=== PATIENT | male | born 1990 | race Hispanic/Latino ===

== ENCOUNTER 2018-08-16 13:06 | Emergency (ER) | payer OTHER ==
[2018-08-16 13:13] VITALS: TEMP 97.6; O2SAT 98
[2018-08-16] MEDS ORDERED: DiphenhydrAMINE 50 mg/ml Inj ONE (13:15)
[2018-08-16] MEDS ORDERED: EPINEPHrine 1 mg/ml (1:1000) Inj ONE (13:16)
[2018-08-16] MEDS ORDERED: Sodium Chloride 0.9% 1,000 ML IV STA (13:18)
[2018-08-16 13:46] LABS: BASO % 0.3 % (0.0-2.0); EOS # 0.2 K/uL (0.0-0.7); EOS % 1.4 % (0.0-4.0); HEMOGLOBIN 17.9 g/dL (12.0-18.0); LYMPH # 3.1 K/uL (1.0-4.3); LYMPH % 28.1 % (20.0-40.0); MEAN CELL VOLUME 92.6 fl (80.0-94.0); MEAN CORPUSCULAR HEMOGLOBIN 30.9 pg (27.0-31.0); MEAN CORPUSCULAR HGB CONC 33.4 g/dL (33.0-37.0); MEAN PLATELET VOLUME 7.5 fl (7.2-11.7); MONO # 0.7 K/uL (0.0-0.8); MONO % 6.4 % (0.0-10.0); NEUT # 7.1 K/uL (1.8-7.0); NEUT % 63.8 % (50.0-75.0); NRBC % 1.4 % (0.0-0.0); RBC 5.79 Mil/uL (4.40-5.90); RED CELL DISTRIBUTION WIDTH 12.7 % (11.5-14.5); WHITE BLOOD COUNT 11.2 K/uL (4.8-10.8)
--- NOTE | 2018-08-16 13:58 | ED PDOC ---
HPI: Skin/Bite Injury Time Seen by Provider: 08/16/18 13:16 Chief Complaint (Nursing): Allergic Reaction Chief Complaint (Provider): Allergic Reaction History Per: Patient History/Exam Limitations: no limitations Onset/Duration Of Symptoms: Days (x1) Current Symptoms Are (Timing): Still Present Additional Complaint(s): 27 year old male arrives to ED for an evaluation of an allergic reaction. Patient reports he ate leftover chocolate truffles from [employer] this morning around 1100 then developed rash with itching diffusely to body. He denies any shortness of breath, chest pain, abdominal pain, throat pain, throat swelling, or known new exposures to food, medication, or environment. Patient reports taking 3 tablets of Benadryl at home at 1230 prior to arrival. Of note, he states he has a new dog at home from 1.5 year ago. PCP: none provided Past Medical History Reviewed: Historical Data, Nursing Documentation, Vital Signs Vital Signs: Last Vital Signs Temp 97.6 F 08/16/18 13:10 Pulse 106 H 08/16/18 13:10 Resp 24 08/16/18 13:10 BP 150/92 H 08/16/18 13:10 Pulse Ox 98 08/16/18 13:10 - Medical History PMH: No Chronic Diseases - Surgical History Surgical History: No Surg Hx - Family History Family History: States: Unknown Family Hx - Allergies Allergies/Adverse Reactions: Allergies Allergy/AdvReac Type Severity Reaction Status Date / Time No Known Allergies Allergy Verified 08/16/18 13:10 Review of Systems ROS Statement: Except As Marked, All Systems Reviewed And Found Negative ENT: Negative for: Throat Pain, Throat Swelling Cardiovascular: Negative for: Chest Pain Respiratory: Negative for: Shortness of Breath Gastrointestinal: Negative for: Abdominal Pain Skin: Positive for: Rash (diffuse with itching) Physical Exam - Reviewed Nursing Documentation Reviewed: Yes Vital Signs Reviewed: Yes - Physical Exam Appears: Positive for: No Acute Distress Head Exam: Positive for: ATRAUMATIC, NORMAL INSPECTION, NORMOCEPHALIC Skin: Positive for: Rash (diffuse) ENT: Positive for: Normal ENT Inspection. Negative for: Pharyngeal Erythema, Tonsillar Swelling Neck: Positive for: Normal, Painless ROM, Supple Cardiovascular/Chest: Positive for: Regular Rate, Rhythm Respiratory: Positive for: Normal Breath Sounds (clear to auscultation). Negative for: Wheezing, Respiratory Distress Gastrointestinal/Abdominal: Positive for: Normal Exam, Soft. Negative for: Tenderness Back: Positive for: Normal Inspection Extremity: Positive for: Normal ROM (upper/lower) Neurologic/Psych: Positive for: Alert, Oriented. Negative for: Motor/Sensory Deficits - Laboratory Results Result Diagrams: 08/16/18 13:40 08/16/18 13:40 - ECG O2 Sat by Pulse Oximetry: 98 (RA) Pulse Ox Interpretation: Normal - Progress Re-evaluation Time: 15: Condition: Improved Medical Decision Making Medical Decision Making: Time: 1315 Initial Plan: * EKG * Labs * Epinephrine 1mg SC * IV fluids * Pepcid 20mg IVP * Solu-medrol 125mg IVP Scribe Attestation: Documented by Janine Garcia, acting as a scribe for Aileen Hammond MD. Provider Scribe Attestation: All medical record entries made by the Scribe were at my direction and personally dictated by me. I have reviewed the chart and agree that the record accurately reflects my personal performance of the history, physical exam, medical decision making, and the department course for this patient. I have also personally directed, reviewed, and agree with the discharge instructions and disposition. Disposition - Clinical Impression Clinical Impression: Allergic reaction - Patient ED Disposition Is Patient to be Admitted: No Doctor Will See Patient In The: Office Counseled Patient/Family Regarding: Diagnosis - Disposition Disposition: Routine/Home Disposition Time: 15:01 Condition: IMPROVED Additional Instructions: take Benadryl 2 tabs every 6 hours as needed. Return to the ER if symptoms become severe. Instructions: Dermatitis Forms: [employer] (Maltese) - POA Present On Arrival: None, Deep Vein Thrombosis / PE
[2018-08-16 14:00] LABS: ALB/GLOB RATIO 1.5 (1.0-2.1); ALBUMIN 4.4 g/dL (3.5-5.0); ALT/SGPT 67 U/L (21-72); AST/SGOT 41 U/L (17-59); BLOOD UREA NITROGEN 19 mg/dl (9-20); CALCIUM 9.2 mg/dL (8.4-10.2); GFR NON-AFRICAN AMERICAN > 60
[2018-08-16 15:23] VITALS: BP 134/74; PULSE 102; RESP 21
--- NOTE | 2018-08-17 00:18 | CARD ---
APPROVED REPORT Date of service: 08/16/2018 EKG Measurement Heart [id number] ID [id number] <Conclusion> Normal sinus rhythm Normal ECG
== END 2018-08-16 14:44 | disposition home or self-care (01) ==
LOC: H.ER 13:06
DX: T78.40XA Allergy, unspecified, initial encounter (principal); R06.2 Wheezing
CPT/HCPCS: 80053; 85025; 93005; 96372; 96374; 96375; 99283; J0171; J2930; J7030

== ENCOUNTER 2018-08-17 18:50 | Emergency (ER) | payer OTHER ==
[2018-08-17] MEDS ORDERED: DiphenhydrAMINE 50 mg/ml Inj ONE (18:56)
[2018-08-17 18:58] VITALS: BMI 68.8
[2018-08-17] MEDS ORDERED: DiphenhydrAMINE 50 mg/ml Inj IV STA (18:58)
[2018-08-17] MEDS ORDERED: Sodium Chloride 0.9% 1,000 ML IV STA (19:23)
[2018-08-17] MEDS ORDERED: EPINEPHrine 1 mg/ml (1:1000) Inj SC STA (19:23)
[2018-08-17] MEDS ORDERED: Magnesium Sulfate 2 gm/50 ml 2 GM/50 ML BAG IV STA (19:34)
[2018-08-17] MEDS ORDERED: EPINEPHrine 1 mg/ml (1:1000) Inj ONE (19:49)
[2018-08-17 20:03] VITALS: RESP 18
[2018-08-17] MEDS ORDERED: Magnesium Sulfate 2 gm/50 ml 2 GM/50 ML BAG ONE (20:06)
--- NOTE | 2018-08-17 20:42 | ED PDOC ---
HPI: Allergic Reaction Time Seen by Provider: 08/17/18 19:22 Chief Complaint (Nursing): Allergic Reaction Chief Complaint (Provider): Allergic Reaction History Per: Patient History/Exam Limitations: no limitations Onset/Duration Of Symptoms: Hrs Current Symptoms Are (Timing): Still Present Possible Cause: Unknown Additional Complaint(s): Chris Hodgson is a 27 year old male with no past medical history who is presenting to the ED for evaluation of allergic reaction. Patient was seen in the ED yesterday for an allergic reaction for which he was given Benadryl, Epi, Pepcid and discharged home without any medication and a recommendation to follow up with an gluer and wedger. He reports that at the time of discharge he was feeling better but today at 5 pm he states that he had throat tightness, trouble breathing/swallowing, and generalized rash. Patient states that he cant recall any new allergen he might have been exposed to but states that yesterday the reaction might have been due to eating a chocolate truffle at [facility]. Of note, patient states that when he was younger he had allergic asthma but he out broke that at a young age. PMD: none provided Past Medical History Reviewed: Historical Data, Nursing Documentation, Vital Signs Vital Signs: Last Vital Signs Temp 97.2 F L 08/17/18 19:01 Pulse 83 08/17/18 19:59 Resp 18 08/17/18 19:59 BP 135/67 08/17/18 19:59 Pulse Ox 98 08/17/18 19:59 - Medical History PMH: No Chronic Diseases - Surgical History Surgical History: No Surg Hx - Family History Family History: States: Unknown Family Hx - Social History Current smoker - smoking cessation education provided: No Alcohol: Social Drugs: Cannabis (medical ) - Home Medications Home Medications: Ambulatory Orders Medication Instructions Recorded Cetirizine HCl [Zyrtec] 10 mg PO QAM #10 capsule 08/17/18 Epinephrine HCl [Epipen 0.3 mg MR PRN PRN #1 ml 08/17/18 Auto-Injector] Famotidine [Pepcid] 20 mg PO Q12 #14 tab 08/17/18 Methylprednisolone [Medrol Dosepak] 4 mg PO ASDIR #1 pkg 08/17/18 - Allergies Allergies/Adverse Reactions: Allergies Allergy/AdvReac Type Severity Reaction Status Date / Time No Known Allergies Allergy Verified 08/16/18 13:10 Review of Systems ROS Statement: Except As Marked, All Systems Reviewed And Found Negative ENT: Positive for: Throat Swelling Respiratory: Positive for: Other (difficulty breathing ) Skin: Positive for: Rash Physical Exam - Reviewed Nursing Documentation Reviewed: Yes Vital Signs Reviewed: Yes - Physical Exam Appears: Positive for: Non-toxic, No Acute Distress Head Exam: Positive for: ATRAUMATIC, NORMAL INSPECTION, NORMOCEPHALIC Skin: Positive for: Warm, Rash (generalized diffuse urticarial rash) Eye Exam: Positive for: EOMI, Normal appearance, PERRL ENT: Positive for: Normal ENT Inspection Neck: Positive for: Normal, Painless ROM Cardiovascular/Chest: Positive for: Regular Rate, Rhythm. Negative for: Murmur Respiratory: Positive for: Other (decreased air entry in lungs). Negative for: Respiratory Distress Gastrointestinal/Abdominal: Positive for: Normal Exam, Soft. Negative for: Te nderness Extremity: Positive for: Normal ROM. Negative for: Deformity, Swelling Neurologic/Psych: Positive for: Alert, Oriented. Negative for: Motor/Sensory Deficits - ECG O2 Sat by Pulse Oximetry: 98 (RA) Pulse Ox Interpretation: Normal - Critical Care Total Time (In Min): 30 Documented Critical Care: Time excludes all time spent performint seperately billable procedures Disposition - Clinical Impression Clinical Impression: Allergic reaction - Disposition Referrals: Bernardino Cooney MD [Staff Provider] - Disposition: Routine/Home Disposition Time: 23:22 Condition: STABLE Prescriptions: Cetirizine HCl [Zyrtec] 10 mg PO QAM #10 capsule Epinephrine HCl [Epipen Auto-Injector] 0.3 mg MR PRN PRN #1 ml PRN Reason: Anaphylaxis Famotidine [Pepcid] 20 mg PO Q12 #14 tab Methylprednisolone [Medrol Dosepak] 4 mg PO ASDIR #1 pkg Instructions: Allergy Skin Testing Forms: [employer] (Kazakh) Medical Decision Making Medical Decision Making: Time: 18:58 Impression: 27 year old male with reoccurring allergic reaction Plan: --Benadryl 50 mg IV --Epinephrine 0.4 mg SC --Magnesium Sulfate 2 gm in 50 ml IV --IV Fluids --Pepcid 20 mg IV --Solu-Medrol 125 mg IVP 23:20 Patient was observed in the ED for four hours and reports complete resolution of symptoms. He will be dsicahrged home with medications including an epi pen. Diagnosis is allergic reaction Scribe Attestation: Documented by Edith Valenzuela, acting as a scribe for Wagner Soler MD. Provider Scribe Attestation: All medical record entries made by the Scribe were at my direction and personally dictated by me. I have reviewed the chart and agree that the record accurately reflects my personal performance of the history, physical exam, medical decision making, and the department course for this patient. I have also personally directed, reviewed, and agree with the discharge instructions and disposition.
[2018-08-18 02:45] VITALS: BP 109/71; PULSE 80; TEMP 98.6
[2018-08-18 02:54] VITALS: O2SAT 98
== END 2018-08-17 23:27 | disposition home or self-care (01) ==
LOC: H.ER 18:50
DX: T78.40XA Allergy, unspecified, initial encounter (principal)
CPT/HCPCS: 96365; 96372; 96375; 96376; 99285; J0171; J1200; J2930; J7030